=== PATIENT | male | born 1980 | race Hispanic/Latino ===

== ENCOUNTER 2022-02-26 21:46 | Emergency (ER) | payer OTHER ==
[~2022-02-26] VITALS: Ht 170.2 cm; Wt 97.5 kg
[2022-02-26] MEDS ORDERED: 0.9%NACL 1000ML 1,000 ML IV SCH (22:00)
[2022-02-26] MEDS ORDERED: IBUPROFEN 800 MG TAB PO ONE (22:00)
[2022-02-26] MEDS ORDERED: ACETAMINOPHEN 500 MG TABLET PO ONE (22:00)
[2022-02-26 22:23] LABS: BASOPHILS % (AUTO) 0.2 % (0.0-5.0); EOSINOPHILS % (AUTO) 0.2 % (0.0-8.0); HEMATOCRIT 45.5 % (42-54); MEAN CORPUSCULAR HEMOGLOBIN 29.4 pg (27.0-33.0); MEAN CORPUSCULAR HGB CONC 34.5 g/dL (32.0-36.0); MEAN CORPUSCULAR VOLUME 85.2 fL (79-99); MONOCYTES % (AUTO) 5.8 % (3.0-13.0); NEUTROPHILS % (AUTO) 83.6 % (40.0-77.0); PLATELET COUNT (AUTO) 349 K/uL (130-400); RED BLOOD CELL COUNT(AUTO) 5.34 MIL/uL (4.50-6.20); RED CELL DISTRIBUTION WIDTH 13.5 % (11.0-15.5)
[2022-02-26] MEDS ORDERED: 0.9%NACL 1000ML 1,000 ML IV ONE (22:28)
[2022-02-26] MEDS ORDERED: IBUPROFEN 800 MG TAB ONE (22:28)
[2022-02-26 22:51] LABS: POTASSIUM 3.3 mmol/L (3.5-5.1)
[2022-02-26 22:56] LABS: BILIRUBIN,TOTAL 0.5 mg/dL (0.2-1.0); TOTAL PROTEIN, SERUM 7.7 g/dL (6.0-8.3)
[2022-02-26 23:00] VITALS: BP 109/70
[2022-02-26] MEDS ORDERED: POTASSIUM BICARB/CIT AC 25 MEQ TABLET.EFF PO ONE (23:00)
[2022-02-26] MEDS ORDERED: POTASSIUM BICARB/CIT AC 25 MEQ TABLET.EFF ONE (23:14)
[2022-02-26 23:16] LABS: APPEARANCE,URINE Clear (CLEAR); BILIRUBIN,URINE Negative (NEGATIVE); GLUCOSE, URINE (UA) Negative (NEGATIVE); KETONES,URINE Trace mg/dL (NEGATIVE); LEUKOCYTE ESTERASE ,URINE Negative (NEGATIVE); NITRATE,URINE Negative (NEGATIVE); OCCULT BLOOD,URINE Negative (NEGATIVE); PROTEIN,URINE Trace mg/dL (NEGATIVE)
[2022-02-26 23:17] LABS: COLOR,URINE YELLOW (YELLOW)
[2022-02-26] MEDS ORDERED: CYCL10TA16 PO (23:23)
[2022-02-26] MEDS ORDERED: IBUP-2071 PO (23:23)
[2022-02-26] MEDS ORDERED: CYCLOBENZAPRINE HCL 10 MG TABLET ONE (23:24)
[2022-02-26] MEDS ORDERED: TRAMADOL HCL 50 MG TABLET ONE (23:25)
[2022-02-26] MEDS ORDERED: CYCLOBENZAPRINE HCL 10 MG TABLET PO ONE (23:30)
[2022-02-26] MEDS ORDERED: TRAMADOL HCL 50 MG TABLET PO ONE (23:30)
== END 2022-02-26 23:35 | disposition home or self-care (01) ==
LOC: EDH 21:46
DX: B34.9 Viral infection, unspecified (principal); E86.0 Dehydration; E87.6 Hypokalemia; Z20.822 Contact with and (suspected) exposure to COVID-19; M32.9 Systemic lupus erythematosus, unspecified; Z79.1 Long term (current) use of non-steroidal anti-inflammatories (NSAID)
CPT/HCPCS: 36415; 71045; 80053; 81003; 83605; 85025; 87040 ×2; 87635; 87804 ×2; 87880; 96360; 99284; C9803; J7030

== ENCOUNTER 2022-09-16 01:17 | Emergency (ER) | payer OTHER ==
[~2022-09-16] VITALS: Ht 170.2 cm; Wt 97.5 kg
[~2022-09-16 01:17] MED LIST: CYCL10TA16 PO; IBUP-2071 PO
[2022-09-16 01:40] LABS: BASOPHILS % (AUTO) 0.3 % (0.0-5.0); EOSINOPHILS % (AUTO) 1.1 % (0.0-8.0); HEMATOCRIT 44.1 % (42-54); LYMPHOCYTES % (AUTO) 29.3 % (21.0-51.0); MEAN CORPUSCULAR HEMOGLOBIN 29.4 pg (27.0-33.0); MEAN CORPUSCULAR HGB CONC 34.9 g/dL (32.0-36.0); MEAN CORPUSCULAR VOLUME 84.3 fL (79-99); MONOCYTES % (AUTO) 9.9 % (3.0-13.0); PLATELET COUNT (AUTO) 300 K/uL (130-400); RED BLOOD CELL COUNT(AUTO) 5.23 MIL/uL (4.50-6.20); RED CELL DISTRIBUTION WIDTH 13.3 % (11.0-15.5); WHITE BLOOD COUNT (AUTO) 9.3 K/uL (4.8-10.8)
[2022-09-16 01:50] LABS: POTASSIUM 3.5 mmol/L (3.5-5.1)
[2022-09-16 01:54] LABS: ALBUMIN 3.9 g/dL (3.5-5.0); TOTAL PROTEIN, SERUM 7.6 g/dL (6.0-8.3)
[2022-09-16] MEDS ORDERED: IPRATROPIUM/ALBUTEROL SULFATE 3 ML SOLUTION IH ONE (02:00)
[2022-09-16] MEDS ORDERED: SOLU-MEDROL 125MG VIAL IVP ONE (02:00)
[2022-09-16] MEDS ORDERED: PRED20TA3 PO (04:00)
[2022-09-16] MEDS ORDERED: ALBU90AE2 IH (04:00)
[2022-09-16 04:12] VITALS: BP 127/61
== END 2022-09-16 04:13 | disposition home or self-care (01) ==
LOC: EDH 01:17
DX: J40 Bronchitis, not specified as acute or chronic (principal); R06.2 Wheezing; Z20.822 Contact with and (suspected) exposure to COVID-19; M32.9 Systemic lupus erythematosus, unspecified; Z79.899 Other long term (current) drug therapy
CPT/HCPCS: 99285; 96374; 71045; 87635; 84484; 80053; 85025; 87804 ×2; 36415; 93005; 94640; C9803; J2930

== ENCOUNTER 2023-01-15 17:07 | Emergency (ER) | payer OTHER ==
[~2023-01-15] VITALS: Ht 170.2 cm; Wt 97.5 kg
[~2023-01-15 17:07] MED LIST changes: +ALBU90AE2 IH; +PRED20TA3 PO
[2023-01-15 17:40] VITALS: BP 124/83
[2023-01-15] MEDS ORDERED: MAG/ALUM/SIMETH 30 ML UDCUP PO ONE (18:00)
[2023-01-15] MEDS ORDERED: LIDOCAINE HCL 2% VISCOUS 15 ML UDCUP PO ONE (18:00)
[2023-01-15 18:08] LABS: BASOPHILS % (AUTO) 0.8 % (0.0-5.0); EOSINOPHILS % (AUTO) 1.7 % (0.0-8.0); HEMATOCRIT 45.2 % (42-54); MEAN CORPUSCULAR HEMOGLOBIN 29.3 pg (27.0-33.0); MEAN CORPUSCULAR HGB CONC 34.5 g/dL (32.0-36.0); MONOCYTES % (AUTO) 7.7 % (3.0-13.0); NEUTROPHILS % (AUTO) 64.4 % (40.0-77.0); PLATELET COUNT (AUTO) 366 K/uL (130-400); RED BLOOD CELL COUNT(AUTO) 5.32 MIL/uL (4.50-6.20); RED CELL DISTRIBUTION WIDTH 13.4 % (11.0-15.5); WHITE BLOOD COUNT (AUTO) 9.2 K/uL (4.8-10.8)
[2023-01-15 18:23] LABS: CREATININE 0.9 mg/dL (0.5-1.5); POTASSIUM 3.9 mmol/L (3.5-5.1)
[2023-01-15 18:26] LABS: INR 0.93 (0.85-1.15); PROTHROMBIN TIME 9.6 SEC (9.6-11.6)
[2023-01-15 18:27] LABS: PARTIAL THROMBOPLASTIN TIME 29.1 SEC (26.3-35.5)
[2023-01-15 18:33] LABS: TOTAL PROTEIN, SERUM 7.6 g/dL (6.0-8.3)
[2023-01-15] MEDS ORDERED: OMEP40CA21 PO (18:44)
[2023-01-15 19:00] LABS: APPEARANCE,URINE CLEAR (CLEAR); BILIRUBIN,URINE NEGATIVE (NEGATIVE); COLOR,URINE COLORLESS (YELLOW); GLUCOSE, URINE (UA) NEGATIVE (NEGATIVE); KETONES,URINE NEGATIVE (NEGATIVE); LEUKOCYTE ESTERASE ,URINE NEGATIVE Leu/uL (NEGATIVE); NITRATE,URINE NEGATIVE (NEGATIVE); OCCULT BLOOD,URINE NEGATIVE (NEGATIVE); PROTEIN,URINE NEGATIVE (NEGATIVE); UROBILINOGEN,URINE 0.2 mg/dL (0.2-1.0)
[2023-01-15 19:06] LABS: MUCUS,URINE RARE LPF (None Seen); RBC,URINE 0-1 /HPF (0-1); WBC,URINE 0-1 /HPF (0-1)
== END 2023-01-15 18:58 | disposition home or self-care (01) ==
LOC: EDH 17:07
DX: K21.9 Gastro-esophageal reflux disease without esophagitis (principal); R07.89 Other chest pain; Z79.899 Other long term (current) drug therapy; Z98.890 Other specified postprocedural states
CPT/HCPCS: 36415; 71045; 80053; 81001; 82550; 83605; 83880; 84484; 85025; 85610; 85730; 93005

== ENCOUNTER 2024-11-12 22:46 | Emergency (ER) | payer SELFPAY ==
[~2024-11-12] VITALS: Ht 172.7 cm; Wt 104.3 kg
[~2024-11-12 22:46] MED LIST changes: -ALBU90AE2 IH; +ALBU90AE3 IH; +OMEP40CA21 PO
[2024-11-12] MEDS: IpraTROPium/alBUTERol SULFATE 3 ML SOLUTION IH ONE (23:25)
[2024-11-12 23:28] VITALS: PULSE 94; RESP 20
[2024-11-12 23:29] LABS: BASOPHILS # (AUTO) 0.03 K/uL (0.00-0.20); BASOPHILS % (AUTO) 0.5 % (0.0-5.0); EOSINOPHILS # (AUTO) 0.01 K/uL (0.00-0.70); EOSINOPHILS % (AUTO) 0.2 % (0.0-8.0); HEMATOCRIT 44.6 % (42-54); IMMATURE GRANULOCYTE ABSOLUTE 0.01 K/uL (0-1); LYMPHOCYTES # (AUTO) 1.8 K/uL (1.0-4.8); LYMPHOCYTES % (AUTO) 28.6 % (21.0-51.0); MEAN CORPUSCULAR HEMOGLOBIN 29.4 pg (27.0-33.0); MEAN CORPUSCULAR HGB CONC 34.5 g/dL (32.0-36.0); MEAN CORPUSCULAR VOLUME 85.1 fL (79-99); MONOCYTES # (AUTO) 0.6 K/uL (0.1-1.0); MONOCYTES % (AUTO) 9.1 % (3.0-13.0); NEUTROPHILS # (AUTO) 3.8 K/uL (1.8-7.7); NEUTROPHILS % (AUTO) 61.4 % (40.0-77.0); PLATELET COUNT (AUTO) 215 K/uL (130-400); RED BLOOD CELL COUNT(AUTO) 5.24 MIL/uL (4.50-6.20); RED CELL DISTRIBUTION WIDTH 12.9 % (11.0-15.5); WHITE BLOOD COUNT (AUTO) 6.2 K/uL (4.8-10.8)
[2024-11-12 23:37] LABS: CARBON DIOXIDE 27 mmol/L (21-32); CHLORIDE 102 mmol/L (101-111); GLOMERULAR FILTR. RATE CALC 96 mL/min (>90); GLUCOSE,RANDOM 118 mg/dL (70-105); POTASSIUM 3.7 mmol/L (3.5-5.1); SODIUM SERUM 138 mmol/L (136-145); UREA NITROGEN, BLOOD 12 mg/dL (7-18)
[2024-11-12 23:45] LABS: CREATINE KINASE, TOTAL 124 U/L (21-232)
[2024-11-13 00:24] LABS: B-TYPE NATRIURETIC PEPTIDE < 5 pg/mL (0-100)
[2024-11-13] MEDS: hydrOXYzine 50MG VIAL 50 MG/ML VIAL IM SCH (00:54)
--- NOTE | 2024-11-13 01:08 | ERN ---
ED Note History of Present Illness Stated Complaint: SHORTNESS OF BREATH, COUGH Chief Complaint: Shortness of Breath Time Seen by MD: 22:48 Allergies: Coded Allergies: No Known Allergies (Unverified Allergy, Unknown, 09/16/22) Home Meds Active Scripts Omeprazole (Omeprazole) 40 Mg Capsule.dr, 40 MG PO DAILY, #30 CAP Prov:DYAN TSANG MD 01/15/23 Albuterol Sulfate (Proair Digihaler) 90 Mcg Aer.pw.bas, 90 MCG IH QIDP PRN for WHEEZING, #1 UNIT Prov:DYAN TSANG MD 09/16/22 Prednisone (Prednisone) 20 Mg Tablet, 1 TAB PO AD for 6 Days, #14 TAB 0 Refills TAKE 3 TAB BY MOUTH daily X3 DAYS, THEN TAKE 2 TAB BY MOUTH daily X2 DAYS, THEN TAKE 1 TAB BY MOUTH ONCE A DAY X1 DAY. Prov:DYAN TSANG MD 09/16/22 Cyclobenzaprine HCl (Flexeril) 10 Mg Tab, 10 MG PO BID, #40 TAB Prov:DONALDO ARELLANO 02/26/22 Ibuprofen (Ibuprofen) 800 Mg Tablet, 800 MG PO TIDMEALS PRN for PAIN, #60 TAB Prov:DONALDO ARELLANO 02/26/22 Past Medical History Dictation 44-year-old male with past medical history of asthma presents via EMS with concerns for shortness of breath. Patient states he has had an upper respiratory tract infection for several weeks and has had pain in his chest and abdomen from coughing fits. Patient denies syncope, presyncope, productive cough, nausea, vomiting diaphoresis comfortable neurological deficits Past Medical History: No Pertinent History Additional Past Medical Hx: LUPUS Surgical History: None, Unknown Family History: Negative Social History: Negative Review of System Dictation See HPI Initial Vital Sign VS Vital Signs Date Time Temp Pulse Resp B/P (MAP) Pulse Ox O2 Delivery O2 Flow Rate FiO2 11/12/24 22:47 98 20 104/72 97 Room Air 0 11/12/24 22:49 98.4 21 Physical Exam Dictation General: Elevated BMI, anxious appearing Lungs: Clear to auscultation, symmetric bilateral breath sounds Heart: Regular rate rhythm, no murmurs rubs or gallops Abdomen: Soft, nontender, no peritoneal Results (Laboratory/Radiology) Laboratory/Radiology Laboratory Tests Test 11/12/24 21:22 White Blood Count 6.2 K/uL (4.8-10.8) Red Blood Count 5.24 MIL/uL (4.50-6.20) Hemoglobin 15.4 g/dL (14.0-18.0) Hematocrit 44.6 % (42-54) Mean Corpuscular Volume 85.1 fL (79-99) Mean Corpuscular Hemoglobin 29.4 pg (27.0-33.0) Mean Corpuscular Hemoglobin Concent 34.5 g/dL (32.0-36.0) Red Cell Distribution Width 12.9 % (11.0-15.5) Platelet Count 215 K/uL (130-400) Mean Platelet Volume 8.7 fL (7.5-10.5) Immature Granulocyte % (Auto) 0.2 % (0-1) Neutrophils (%) (Auto) 61.4 % (40.0-77.0) Lymphocytes (%) (Auto) 28.6 % (21.0-51.0) Monocytes (%) (Auto) 9.1 % (3.0-13.0) Eosinophils (%) (Auto) 0.2 % (0.0-8.0) Basophils (%) (Auto) 0.5 % (0.0-5.0) Neutrophils # (Auto) 3.8 K/uL (1.8-7.7) Lymphocytes # (Auto) 1.8 K/uL (1.0-4.8) Monocytes # (Auto) 0.6 K/uL (0.1-1.0) Eosinophils # (Auto) 0.01 K/uL (0.00-0.70) Basophils # (Auto) 0.03 K/uL (0.00-0.20) Absolute Immature Granulocyte (auto 0.01 K/uL (0-1) Nucleated Red Blood Cells 0.0 % (0.0-0.19) Sodium Level 138 mmol/L (136-145) Potassium Level 3.7 mmol/L (3.5-5.1) Chloride Level 102 mmol/L (101-111) Carbon Dioxide Level 27 mmol/L (21-32) Blood Urea Nitrogen 12 mg/dL (7-18) Creatinine 1.0 mg/dL (0.5-1.3) Glomerular Filtration Rate Calc 96 mL/min (>90) Random Glucose 118 mg/dL (70-105) H Total Calcium 8.6 mg/dL (8.5-10.1) Total Creatine Kinase 124 U/L (21-232) # Troponin I High Sensitivity < 4.0 ng/L (4-75) L B-Type Natriuretic Peptide < 5 pg/mL (0-100) ED Course ED Course Orders Procedure Category Date Status Time Cbc With Differential LAB 11/12/24 Complete 22:48 B-Type Natriuretic LAB 11/12/24 Complete Peptide 22:48 Cardiac Panel LAB 11/12/24 Complete 22:48 Chest 1vw RAD 11/12/24 Taken 22:48 12 Lead Ekg Tracing- EKG 11/12/24 Logged Technical 22:48 Ipratropium/Albuterol PHA 11/12/24 Complete Neb (Duoneb) 23:00 Basic Metabolic Panel LAB 11/12/24 Complete 22:48 Hydroxyzine 50mg Vial PHA 11/13/24 In Process (Atarax 50mg Inj) 01:00 Current Medications Medications (Trade) Dose Ordered Sig/Angela Route PRN Reason Start Time Stop Time Status Last Admin Dose Admin Albuterol (DUOneb) 3 udvial ONCE ONCE IH 11/12/24 23:00 11/12/24 23:01 DC 11/12/24 23:25 Hydroxyzine HCl (ATArax 50MG INJ) 25 mg ONCE IM 11/13/24 01:00 12/13/24 00:59 11/13/24 00:54 Vital Signs Date Time Temp Pulse Resp B/P (MAP) Pulse Ox O2 Delivery O2 Flow Rate FiO2 11/13/24 00:40 102 18 116/66 97 Room Air* 0 11/12/24 23:28 94 20 11/12/24 23:25 98.4 90 16 128/78 95 Room Air* 0 11/12/24 22:49 98.4 98 20 104/72 97 Room Air* 0 11/12/24 22:47 98 20 104/72 97 Room Air 0 Medical Decision Making MDM DD DX: Pneumonia versus bronchitis versus viral URI versus STEMI versus NSTEMI All imaging diagnostics interpreted by be unless otherwise stated EKG, 11/12/2024; 02/07/2060 Normal sinus rhythm 91 beats per minute, normal axis, normal intervals, no acute ischemic ST-T changes EKG shows no acute ischemic changes. Troponin within normal limits per the stomach per dad NSTEMI. Chest x-ray shows no acute cardiopulmonary pathology per Sunni monitored as CHF. Which was within normal limits. Electrolyte derangement. Patient's physical exam consistent with a viral URI. Low clinical suspicion for cardiac chest pain. Patient was started score of two. Re-evaluation, patient in no respiratory distress. Discussed with the workup the patient. Recommend close primary care follow-up. Return precautions given. Bypass by courses. Discharge. Patient will be DX & DISP Disposition: Discharge Departure Impression: Primary Impression: Viral URI Additional Impression: Chest pain Condition: Stable Scripts Benzonatate (Tessalon Perles) 100 Mg Cap 100 MG PO TID for cough, #30 CAP 0 Refills Prov: SAMIR PATINO DO 11/13/24 Additional Instructions: Please return to the emergency department immediately if you develop chest pain with concomitant nausea, vomiting, sweating, loss causes, weakness, abdominal pain. The symptoms are concerning for cardiac chest pain. Please follow up primary care physician at next available appointment. Referrals: NONE (PCP) SAMIR PATINO DO Nov 13, 2024 01:08
[2024-11-13] MEDS ORDERED: BENZ-39 PO (01:24)
[2024-11-13 01:39] VITALS: BP 107/62; PULSE 92; RESP 18; TEMP 98.4; O2SAT 95
--- NOTE | 2024-11-13 05:30 | EKG ---
[facility] Test Date: 2024-11-12 Test Time: 23:06:11 Pat Name: FLORENTINO HALL Department: [facility] Room: Gender: Director State Pharmacy: [id number] : 1980 Requested By: SAMIR PATINO Order Number: [id number] Reading MD: Yen Castillo Measurements Intervals [place] Rate: 91 P: 38 AL: 144 QRS: 64 QRSD: 80 T: 26 QT: 360 QTc: 443 Interpretive Statements Sinus rhythm Compared to ECG 01/15/2023 17:27:09 No significant changes Electronically Signed On 11-13-2024 11:27:57 [employer]OR WORKER by Yen Castillo Please click the below link to view image of tracing.
--- NOTE | 2024-11-13 09:18 | HMCIMG ---
Exam Type: CHEST 1VW Clinical Information: Dyspnea/SOB Comparison: None Findings: The lungs are clear of infiltrates. The heart is normal in size. The bony and soft tissue structures of the chest are unremarkable. Impression: Clear lungs.
== END 2024-11-13 01:40 | disposition home or self-care (01) ==
LOC: EDH 22:46
DX: J06.9 Acute upper respiratory infection, unspecified (principal); R07.9 Chest pain, unspecified; J45.909 Unspecified asthma, uncomplicated; Z79.899 Other long term (current) drug therapy
CPT/HCPCS: 99285; 71045; 82550; 84484; 80048; 83880; 85025; 36415; 93005; 94640; 96372; J3410